=== PATIENT | female | born 1980 | race Caucasian/White ===

== ENCOUNTER 2018-01-14 22:10 | Emergency (ER) | payer SELFPAY ==
[~2018-01-14] VITALS: Ht 165.1 cm; Wt 91.6 kg
[~2018-01-14 22:10] MED LIST: ESCI10TA PO; IBUP-1969 PO
[2018-01-14 22:16] VITALS: BP_SYST 130
[2018-01-14] MEDS ORDERED: BACITRACIN 1 GM OINT TP ONE (23:00)
[2018-01-14] MEDS ORDERED: LIDOCAINE 1% 10 MG/ML, 20 ML MDV IJ ONE (23:00)
[2018-01-14 23:15] VITALS: BP_SYST 120
[2018-01-14] MEDS ORDERED: DIPH-TET-PERTUS Vaccine 0.5 ML VIAL (ADACEL) IM ONE (23:15)
== END 2018-01-14 23:15 | disposition home or self-care (01) ==
LOC: SED 22:10
DX: S61.412A Laceration without foreign body of left hand, initial encounter (principal); F17.210 Nicotine dependence, cigarettes, uncomplicated; Z88.0 Allergy status to penicillin; W45.8XXA Other foreign body or object entering through skin, initial encounter; Y93.89 Activity, other specified; Y92.89 Other specified places as the place of occurrence of the external cause; Y99.8 Other external cause status
CPT/HCPCS: 12001; 99283; J2001; 90715